=== PATIENT | male | born 1995 | race American Indian/Alaskan Native ===

== ENCOUNTER 2020-07-23 22:23 | Emergency (ER) | payer SELFPAY ==
[2020-07-23] MEDS ORDERED: SODIUM CHLORIDE 0.9% 1000 ML 1,000 ML IV ONE (23:22)
[2020-07-23] MEDS ORDERED: ONDANSETRON 4 MG/2 ML INJ IV ONE (23:22)
[2020-07-23] MEDS ORDERED: KETOROLAC 30 MG/1 ML INJ IV ONE (23:22)
[2020-07-23 23:31] VITALS: BP 149/85
--- NOTE | 2020-07-23 23:38 | Emergency Department Report ---
ED Abdominal Pain HPI - General Chief Complaint: Abdominal Pain Stated Complaint: SEVERE BILATERAL FLANK PAIN Source: patient Mode of arrival: Ambulatory Limitations: No Limitations - History of Present Illness Initial Comments: Patient is a 25-year-old -Finnish male with a history of recurrent kidney stones who presents to the ED with complaint of acute onset persistent bilateral flank pain worse on the right flank that radiates to the right lower quadrant with intermittent nausea and vomiting for the last 2 days worse in the last 6 hours. Patient states that he has not been able to sleep because of worsening pain and intractable nausea and vomiting. Patient states that the pain also radiates up with suprapubic area causing pressure in his testicles and states that he previously experienced similar symptoms when he had his last kidney stone episode. Patient denies dizziness, fever, chills, diarrhea, testicular pain, hematuria, chest pain or shortness of breath, cough, headache, traumatic injury, heavy lifting, numbness and tingling or weakness of lower extremities bilaterally, penile discharge or dysuria. MD Complaint: abdominal pain (RLQ Pain), flank pain (Bilateral flank pain), other (Nausea and vomiting) -: Sudden, days(s) (2) Location: L flank, R flank, bilateral flank Radiation: L flank, R flank, bilateral flank Migration to: no migration Severity: moderate, severe Severity scale (0 -10): 8 Quality: aching, sharp Consistency: constant Improves With: nothing Worsens With: vomiting Associated Symptoms: denies other symptoms, nausea, vomiting, anorexia. denies: diarrhea, fever, constipation, dysuria, hematochezia, melena, syncope - Related Data Previous Rx's Medication Instructions Recorded Last Taken Type HYDROcodone/APAP 5-325 [Fence 1 each PO Q6HR PRN #12 tablet 07/24/20 Unknown Rx 5/325] Naproxen 500 mg PO Q12H PRN #30 tablet 07/24/20 Unknown Rx Ondansetron [Zofran Odt] 4 mg PO Q6HR PRN #20 tab.rapdis 07/24/20 Unknown Rx Tamsulosin [Flomax] 0.4 mg PO QDAY #10 cap 07/24/20 Unknown Rx Allergies Allergy/AdvReac Type Severity Reaction Status Date / Time ivp dye Allergy Hives Uncoded 07/23/20 23:35 ED Review of Systems ROS: Stated complaint: SEVERE BILATERAL FLANK PAIN Other details as noted in HPI Constitutional: denies: chills, fever Eyes: denies: eye pain, eye discharge, vision change ENT: denies: ear pain, throat pain Respiratory: denies: cough, shortness of breath, wheezing Cardiovascular: denies: chest pain, palpitations Endocrine: no symptoms reported Gastrointestinal: abdominal pain (Bilateral flank pain), nausea, vomiting. denies: diarrhea Genitourinary: denies: urgency, dysuria Musculoskeletal: denies: back pain, joint swelling, arthralgia Skin: denies: rash, lesions Neurological: denies: headache, weakness, paresthesias Psychiatric: denies: anxiety, depression Hematological/Lymphatic: denies: easy bleeding, easy bruising ED Past Medical Hx - Past Medical History Previous Medical History?: Yes Hx Kidney Stones: Yes - Surgical History Past Surgical History?: No - Medications Home Medications: Home Medications Medication Instructions Recorded Confirmed Last Taken Type HYDROcodone/APAP 5-325 [Fence 1 each PO Q6HR PRN #12 tablet 07/24/20 Unknown Rx 5/325] Naproxen 500 mg PO Q12H PRN #30 tablet 07/24/20 Unknown Rx Ondansetron [Zofran Odt] 4 mg PO Q6HR PRN #20 tab.rapdis 07/24/20 Unknown Rx Tamsulosin [Flomax] 0.4 mg PO QDAY #10 cap 07/24/20 Unknown Rx ED Physical Exam - General Limitations: No Limitations General appearance: alert, in no apparent distress - Head Head exam: Present: atraumatic, normocephalic, normal inspection - Eye Eye exam: Present: normal appearance, PERRL, EOMI Pupils: Present: normal accommodation - ENT ENT exam: Present: normal exam, normal orophraynx, mucous membranes moist, TM's normal bilaterally, normal external ear exam - Neck Neck exam: Present: normal inspection, full ROM - Respiratory Respiratory exam: Present: normal lung sounds bilaterally. Absent: respiratory distress, wheezes, stridor, chest wall tenderness, accessory muscle use, decreased breath sounds, prolonged expiratory - Cardiovascular Cardiovascular Exam: Present: regular rate, normal rhythm, normal heart sounds. Absent: systolic murmur, diastolic murmur, rubs, gallop - GI/Abdominal GI/Abdominal exam: Present: soft, tenderness (Palpable right flank and right lower quadrant tenderness), normal bowel sounds. Absent: guarding, rebound, rigid, hyperactive bowel sounds, hypoactive bowel sounds, organomegaly, mass - Extremities Exam Extremities exam: Present: normal inspection, full ROM, normal capillary refill - Back Exam Back exam: Present: normal inspection, full ROM. Absent: tenderness, CVA tenderness (R), CVA tenderness (L), muscle spasm, paraspinal tenderness, vertebral tenderness - Neurological Exam Neurological exam: Present: alert, oriented X3, CN II-XII intact, normal gait, reflexes normal - Psychiatric Psychiatric exam: Present: normal affect, normal mood - Skin Skin exam: Present: warm, dry, intact, normal color. Absent: rash ED Course Vital Signs 07/23/20 23:25 Temperature 98.1 F Pulse Rate 65 Respiratory 18 Rate Blood Pressure 149/85 O2 Sat by Pulse 99 Oximetry ED Medical Decision Making - Lab Data Result diagrams: 07/23/20 23:39 07/23/20 23:39 - Radiology Data Radiology results: report reviewed, image reviewed [place] [id number] Cat Scan Report Signed Patient: DEYA ALY MR#: [id number] : 1995 Acct:[id number] Age/Sex: 25 / M ADM Date: 07/23/20 Loc: ED Attending Dr: Ordering Physician: MARIJA MORELAND Date of Service: 07/23/20 Procedure(s): CT abdomen pelvis wo con Accession Number(s): [id number] cc: MARIJA MORELAND CT ABDOMEN AND PELVIS WITHOUT CONTRAST INDICATION / CLINICAL INFORMATION: Patient complains of RIGHT sided flank pain - possible Kidney stones. TECHNIQUE: Axial CT images were obtained through the abdomen and pelvis without IV contrast. All CT scans at this location are performed using CT dose reduction for ALARA by means of automated exposure control. COMPARISON: None available. FINDINGS: LOWER CHEST: No significant abnormality. LIVER: No significant abnormality. GALLBLADDER: No significant abnormality. BILE DUCTS: No significant abnormality. PANCREAS: No significant abnormality. SPLEEN: No significant abnormality. ADRENALS: No significant abnormality. RIGHT KIDNEY / URETER: Multiple nonobstructing stones right kidney. The largest is at the upper pole measuring 4.5 mm. Mild/moderate distention of the right ureter extending to the level of a 4.50 m stone at the level of L2-3. LEFT KIDNEY / URETER: No significant abnormality. STOMACH / SMALL BOWEL: No significant abnormality. COLON: No significant abnormality. APPENDIX: No significant abnormality. PERITONEUM: No free fluid. No free air. No fluid collection. LYMPH NODES: No significant adenopathy. VASCULAR STRUCTURES: No significant abnormality. URINARY BLADDER: No significant abnormality. REPRODUCTIVE ORGANS: No significant abnormality. ADDITIONAL FINDINGS: None. SKELETAL SYSTEM: No significant abnormality. IMPRESSION: 1. 4.5 mm stone right ureter at L2-L3 with mild/moderate obstruction. 2. Multiple nonobstructing right calyceal stones. Signer Name: Yunior Medrano MD Signed: 07/24/2020 12:10 AM Workstation Name: [id number] Transcribed By: YANIV Dictated By: Yunior Medrano MD Electronically Authenticated By: Yunior Medrano MD Signed Date/Time: 07/24/20 0010 DD/ 0005 TD/TT: Print Cancel - Medical Decision Making This is a 25-year-old -Finnish male with a history of recurrent kidney stones who presents to the ED with complaint of acute onset persistent bilateral flank pain worse on the right flank that radiates to the right lower quadrant with intermittent nausea and vomiting for the last 2 days worse in the last 6 hours. Patient states that he has not been able to sleep because of worsening pain and intractable nausea and vomiting. Patient states that the pain also radiates up with suprapubic area causing pressure in his testicles and states that he previously experienced similar symptoms when he had his last kidney stone episode. In the ED, patient is alert and oriented x3 and is not in distress. Patient however appears to be in significant pain. Patient was treated for pain and also given antiemetics and normal saline 2 L IV bolus x1. On reevaluation, patient's pain is well controlled medications. Lab test results were reviewed and showed acute leukocytosis of 12,200 with large hematuria in urinalysis. The rest of the lab test results were nonactionable. Abdomen pelvis CT scan without contrast showed a 4.5 mm stone right ureter at L2-L3 with mild/moderate obstruction. It also showed multiple nonobstructing right calyceal stones. On reevaluation, patient's pain is well controlled medications. Patient was also treated in the ED with Flomax 0.4 mg p.o. x1. Patient was discharged home on pain medications and given a referral to the urologist Dr. Margarito Cota for further evaluation. Patient was advised to contact Dr. Cota's office first in the morning on Monday, July 27, 2020 to schedule a follow-up appointment. Patient was also advised return to ED immediately if symptoms get worse. - Differential Diagnosis Kidney stones; UTI; Appendicitis; Colitis; Critical care attestation.: If time is entered above; I have spent that time in minutes in the direct care of this critically ill patient, excluding procedure time. ED Disposition Clinical Impression: Acute right flank pain, Nausea and vomiting in adult, Kidney stone on right side Disposition: TO HOME OR SELFCARE Is pt being admited?: No Does the pt Need Aspirin: No Condition: Stable Instructions: Kidney Stones, [id number], Renal Colic, [id number], Flank Pain, Adult, [id number], Nausea and Vomiting, Adult, [id number] Additional Instructions: Lab test results were reviewed and imaging reports showed a 4.5 mm stone on the right side. Therefore take medications with food, drink plenty of fluids and follow-up with the urologist Dr. Rodríguez for further evaluation. Contact Dr. Cota's office first thing in the morning on Monday, July 27, 2020 to schedule a follow-up appointment. Return to the ED immediately if symptoms get worse. Prescriptions: Tamsulosin [Flomax] 0.4 mg PO QDAY #10 cap Naproxen 500 mg PO Q12H PRN #30 tablet PRN Reason: Pain , Severe (7-10) HYDROcodone/APAP 5-325 [Fence 5/325] 1 each PO Q6HR PRN #12 tablet PRN Reason: Pain Ondansetron [Zofran Odt] 4 mg PO Q6HR PRN #20 tab.rapdis PRN Reason: Nausea And Vomiting Referrals: PRIMARY CARE, [Primary Care Provider] - 3-5 Days MARGARITO COTA MD [Staff Physician] - 2-3 Days Time of Disposition: 03:09 Print Language: MOHAWK
--- NOTE | 2020-07-24 00:14 | Cat Scan Report ---
CT ABDOMEN AND PELVIS WITHOUT CONTRAST INDICATION / CLINICAL INFORMATION: Patient complains of RIGHT sided flank pain - possible Kidney sto naga. TECHNIQUE: Axial CT images were obtained through the abdomen and pelvis without IV contrast. All CT scans at this location are performed using CT dose reduction for ALARA by means of automated exposure control. COMPARISON: None available. FINDINGS: LOWER CHEST: No significant abnormality. LIVER: No significant abnormality. GALLBLADDER: No significant abnormality. BILE DUCTS: No significant abnormality. PANCREAS: No significant abnormality. SPLEEN: No significant abnormality. ADRENALS: No significant abnormality. RIGHT KIDNEY / URETER: Multiple nonobstructing stones right kidney. The largest is at the upper pole measuring 4.5 mm. Mild/moderate distention of the right ureter extending to the level of a 4.50 m sto ne at the level of L2-3. LEFT KIDNEY / URETER: No significant abnormality. STOMACH / SMALL BOWEL: No significant abnormality. COLON: No significant abnormality. APPENDIX: No significant abnormality. PERITONEUM: No free fluid. No free air. No fluid collection. LYMPH NODES: No significant adenopathy. VASCULAR STRUCTURES: No significant abnormality. URINARY BLADDER: No significant abnormality. REPRODUCTIVE ORGANS: No significant abnormality. ADDITIONAL FINDINGS: None. SKELETAL SYSTEM: No significant abnormality. IMPRESSION: 1. 4.5 mm stone right ureter at L2-L3 with mild/moderate obstruction. 2. Multiple nonobstructing right calyceal stones. Signer Name: Yunior Medrano MD Signed: 07/24/2020 12:10 AM Workstation Name: [id number]
[2020-07-24 00:36] LABS: Alanine Aminotransferase 16 units/L (7-56); Albumin 5.1 g/dL (3.9-5); BUN/Creatinine Ratio 12; Blood Urea Nitrogen 11 mg/dL (9-20); Calcium 9.7 mg/dL (8.4-10.2); Hemolysis Index 8
[2020-07-24 00:41] LABS: Basophils # (Auto) 0.1 K/mm3 (0.0-0.1); Basophils % (Auto) 0.6 % (0.0-1.8); Hematocrit 45.3 % (35.5-45.6); Hemoglobin 14.8 gm/dl (11.8-15.2); Lymphocytes # (Auto) 1.6 K/mm3 (1.2-5.4); Lymphocytes % (Auto) 13.3 % (13.4-35.0); Mean Corpuscular HGB Conc 33 % (32-34); Mean Corpuscular Volume 88 fl (84-94); Monocytes # (Auto) 0.4 K/mm3 (0.0-0.8); Platelet Count 253 K/mm3 (140-440); Red Blood Count 5.15 M/mm3 (3.65-5.03); Red Cell Distribution Width 15.4 % (13.2-15.2)
[2020-07-24] MEDS ORDERED: SODIUM CHLORIDE 0.9% 1000 ML 1,000 ML IV ONE (01:07)
[2020-07-24] MEDS ORDERED: TAMSULOSIN 0.4 MG CAP PO ONE (02:13)
[2020-07-24 02:43] LABS: Bilirubin,Urine NEG (Negative); Blood,Urine LG (Negative); Color,Urine Yellow (Yellow); Mucus,Urine 3+ /HPF; Urobilinogen,Urine < 2.0 mg/dL (<2.0)
[2020-07-24 02:44] LABS: RBC,Urine > 182.0 /HPF (0.0-6.0)
[2020-07-24] MEDS ORDERED: ONDANSETRON 4 MG/2 ML INJ IV ONE (03:09)
[2020-07-24] MEDS ORDERED: ONDANSETRON 4 MG/2 ML INJ ONE (03:09)
[2020-07-24] MEDS ORDERED: MORPHINE 4 MG/1 ML INJ IV ONE (03:09)
[2020-07-24] MEDS ORDERED: MORPHINE 4 MG/1 ML INJ ONE (03:09)
== END 2020-07-24 03:45 | disposition home or self-care (01) ==
LOC: ED 22:23
DX: N20.0 Calculus of kidney (principal); R11.2 Nausea with vomiting, unspecified; Z79.899 Other long term (current) drug therapy
CPT/HCPCS: 36415; 74176; 80053; 81001; 83690; 85025; 96361; 96374; 96375; 96376; 99284; J1885; J2270; J2405; J7030

== ENCOUNTER 2020-12-14 13:40 | Emergency (ER) | payer SELFPAY ==
[2020-12-14 15:36] VITALS: BP 146/97
[2020-12-14] MEDS ORDERED: KETOROLAC 10 MG TAB PO ONE (16:37)
--- NOTE | 2020-12-14 16:38 | Emergency Department Report ---
Chief Complaint: Dental/Oral Stated Complaint: TOOTHACHE Time Seen by Provider: 12/14/20 16:29 - HPI History of Present Illness: 25-year-old male presents to the ER today complaining of left upper dental pain. Patient states that he has been having this pain off and on for the past 2 to 3 months. But he states that in November the pain has been constant. He states that the pain radiates into his left ear and in his head. He also has a bump to the gum above one of the tooth in the left upper jaw but he states that he has had that therefore a couple months. He has not gotten any bigger. He states that he was able to make an appointment with a dentist for December 23. He states that he is not getting any relief from his pain with Tylenol. He reports no other symptoms at this time. - Exam Vital Signs: Vital Signs 12/14/20 15:35 Temperature 98.8 F Pulse Rate 72 Respiratory 18 Rate Blood Pressure 146/97 O2 Sat by Pulse 100 Oximetry MSE screening note: Focused history and physical exam performed. Due to findings the following was ordered: ED Medical Decision Making - Medical Decision Making 25-year-old male presents to the ER today complaining of left upper dental pain. Patient states that he has been having this pain off and on for the past 2 to 3 months. But he states that in November the pain has been constant. He states that the pain radiates into his left ear and in his head. He also has a bump to the gum above one of the tooth in the left upper jaw but he states that he has had that therefore a couple months. He has not gotten any bigger. He states that he was able to make an appointment with a dentist for December 23. He states that he is not getting any relief from his pain with Tylenol. He reports no other symptoms at this time. Patient is well-appearing, nontoxic and not in any acute distress. He has no trismus or drooling on exam. No facial swelling or cellulitis. No obvious dental abscess. He has no stridor, is not in any respiratory distress, airway is intact. His vital signs are stable. There is no indication for any antibiotics, or any emergent intervention at this time. Patient instructed to keep his appointment with his dentist for December 23. Patient expressed und erstanding of all instructions and agree with plan. Patient was stable at time of discharge. ED Disposition for MSE Clinical Impression: Pain, dental Disposition: TO HOME OR SELFCARE Is pt being admited?: No Does the pt Need Aspirin: No Condition: Stable Instructions: Diet and Dental Disease Additional Instructions: Take the toradol as prescribed to help with pain. Keep your appointment with you r dentist. Follow up with PCP listed on your d/c instructions. Return to ED if worse. Prescriptions: Ketorolac [Toradol] 10 mg PO Q6H PRN #20 tablet PRN Reason: Pain Referrals: [facility] [Provider Group] - 3-5 Days Time of Disposition: 16:38 ED Review of Systems ROS: Stated complaint: TOOTHACHE Other details as noted in HPI Comment: All other systems reviewed and negative Constitutional: denies: chills, fever Eyes: denies: eye pain, eye discharge, vision change ENT: dental pain Respiratory: denies: cough, shortness of breath, wheezing Cardiovascular: denies: chest pain, palpitations Gastrointestinal: denies: abdominal pain, nausea, diarrhea, constipation, hematemesis, hematochezia Genitourinary: denies: urgency, dysuria, frequency, hematuria, testicular pain, testicular mass Musculoskeletal: denies: back pain, joint swelling, arthralgia Skin: denies: rash, lesions, change in color, change in hair/nails, pruritus Neurological: denies: headache, weakness, numbness, paresthesias, confusion, abnormal gait, vertigo Psychiatric: denies: anxiety, depression, auditory hallucinations, visual hallucinations, homicidal thoughts, suicidal thoughts Hematological/Lymphatic: denies: easy bleeding, easy bruising, swollen glands ED Physical Exam - General Limitations: No Limitations General appearance: alert, in no apparent distress - Head Head exam: Present: atraumatic, normocephalic, normal inspection - Eye Eye exam: Present: normal appearance, PERRL, EOMI Pupils: Present: normal accommodation - ENT ENT exam: Present: normal exam, mucous membranes moist, TM's normal bilaterally - Expanded ENT Exam Expanded Mouth exam: Present: normal external inspection 1 - Dental Tenderness (Mild tenderness to palpation), Other (No induration or fluctuance noted. No gingival swelling.) Throat exam: Positive: normal inspection - Neck Neck exam: Present: normal inspection, full ROM. Absent: meningismus - Respiratory Respiratory exam: Present: normal lung sounds bilaterally. Absent: respiratory distress, wheezes, rales, rhonchi, stridor - Cardiovascular Cardiovascular Exam: Present: regular rate, normal rhythm, normal heart sounds - Neurological Exam Neurological exam: Present: alert, oriented X3, CN II-XII intact, normal gait - Psychiatric Psychiatric exam: Present: normal affect, normal mood - Skin Skin exam: Present: intact
== END 2020-12-14 16:40 | disposition home or self-care (01) ==
LOC: ED 13:40
DX: K08.89 Other specified disorders of teeth and supporting structures (principal)
CPT/HCPCS: 99282